=== PATIENT | male | born 1930 | race Caucasian/White ===

== ENCOUNTER 2016-11-10 06:35 | Day surgery (SDC) | payer MEDICARE, OTHER ==
[2016-11-10] VITALS (10 sets, daily range): BP systolic 140–158; BP diastolic 71–79; PULSE 56–74; RESP 13–22; O2SAT 97–100
[~2016-11-10] VITALS: Ht 175.3 cm; Wt 61.3 kg
[~2016-11-10 06:35] MED LIST: ALBU2SYR PO; CLOP75TA28 PO; CeFAZolin Inj 2 GM in IV Premix 1 EACH IV ONE; DILT240T10 PO; DOCU-41 PO; DOXY100T2 PO; HYDR25TA4 PO; SIMV20TA4 PO; TAMS0.4C98 PO
[2016-11-10] MEDS ORDERED: Propofol 10,000 mCg/mL 20 mL Inj ONE (06:36)
[2016-11-10] MEDS ORDERED: fentaNYL-PF 50 mCg/mL 2 mL Inj ONE (06:36)
[2016-11-10] MEDS: Lactated Ringer's 1,000 ML IV SCH ×2 (07:50→08:26)
[2016-11-10] MEDS ORDERED: POTA10TA PO (07:50)
[2016-11-10] MEDS ORDERED: Lactated Ringer's 500 ML IV PRN (08:17)
[2016-11-10] MEDS ORDERED: Lactated Ringer's 1,000 ML IV SCH (08:17)
--- NOTE | 2016-11-10 08:17 | PCM.HPANE ---
Patient Data Surgeon Admitting Provider: Attending Provider:Ana Walsh MD Primary Care Physician:Chandni Feliz MD Other Provider:Nacho Vitale Anesthesia Reason for Visit Left Kidney Stone Ht/WT & BMI Height (Feet): 5 Height (Inches): 9 Weight (Kilograms): 61.33 Body Mass Index 20.00 Allergies Coded Allergies: Sulfa (Sulfonamide Antibiotics) (Unverified Allergy, Unknown, UNKNOWN, ) ciprofloxacin (Unverified Allergy, Unknown, UNKNOWN, 03/21/16) levofloxacin (Unverified Allergy, Unknown, UNKNOWN, 03/21/16) nitrofurantoin (Verified Allergy, Unknown, UNKNOWN, 03/21/16) trimethoprim (Unverified Allergy, Unknown, UNKNOWN, 03/21/16) Past Anesthesia History Anesthesia History: Positive for:: Anesthesia Reactions (PONV), Denies:: Abnormal Airway, Difficult Intubation, Fam Anesthesia Reaction, Fam Malignant Hypertherm, Malignant Hyperthermia Diabetes History Hx Diabetes?: No MRSA MRSA: No Medications Blood Thinner: Plavix Last Dose Blood Thinner: Oct 30, 2016 Hypertension Medication: Yes Home Meds Incl Beta Rachel: No Reported Medications Potassium Chloride ER (K-Tab)10 Meq Stdhwv22 Meq PO day 11/10/16 Simvastatin 20 Mg Iwcwlx32 Mg PO HS Ref 0 11/07/16 Hydrochlorothiazide 25 Mg Otaffa41 Mg PO DAILY 30 Days Ref 0 11/07/16 Diltiazem ER 240 Mg Tab.er.79m429 Mg PO DAILY Ref 0 11/07/16 Docusate Sodium (Colace)100 Mg Incamav563 Mg PO BID PRN For Constipation Ref 0 11/07/16 Clopidogrel 75 Mg Ghvndk99 Mg PO DAILY Ref 0 11/07/16 Albuterol Liquid 2 Mg/5 Ml Syrup2 Mg PO TID Ref 0 11/07/16 Discontinued Reported Medications Tamsulosin (Flomax)0.4 Mg Capsule0.4 Mg PO DAILY Ref 0 11/07/16 Doxycycline Hyclate 100 Mg Knpurd802 Mg PO BID 11/07/16 [Potassium] No Conflict Check Daily 03/24/16 Diltiazem (Cardizem)120 Mg Kedfkm013 Mg PO DAILY Ref 0 10/02/15 Albuterol HFA (Proair HFA)8.5 Gm Hfa.aer.ad2 Puffs INHALATION QID #1 INHALER 10/02/15 Simvastatin 20 Mg Bowtrc08 Mg PO HS Ref 0 10/02/15 Hydrochlorothiazide 25 Mg Zlbecz44 Mg PO DAILY 30 Days Ref 0 10/02/15 Clopidogrel Bisulfate (Plavix)75 Mg Pvysit70 Mg PO DAILY 30 Days Ref 0 10/02/15 Levothyroxine 75 Mcg Boqnmu71 Mcg PO DAILY Ref 0 10/02/15 History History of ENT Problems?: Yes HEENT History: Positive for:: Cataracts (bilateral) Dysphagia (swallowing pills) Sinus Problem (recently treated for sinus infections-denies fever, active cough) Denies:: Abnormal Airway Difficult Intubation Hearing Problem TMJ Denture Type: Full- Upper Full- Lower Teeth Condition: Missing Teeth Hx of Heart Problems?: Yes Cardiovascular History: Positive for:: Hypertension Irregular Heartbeat (OCC PVC'S) Denies:: Cardiac Surgery Chest Pain Congestive Heart Failure Heart Murmur Pacemaker Hx of Respiratory Problem?: Yes Respiratory History: Positive for:: COPD Denies:: Asthma Emphysema Oxygen Administration Pneumonia (hx bronchitis) Pulmonary Embolism Tuberculosis Use of C-PAP Machine Hx Neurologic Problems?: Yes Neurological History: Positive for:: CVA (past hx of, no residual) Denies:: Dizziness Headaches Multiple Sclerosis Parkinson's Disease Seizures Hx of GI Problems?: Yes Gastrointestinal History: Positive for:: Gastrointestinal Bleeding Denies:: Cirrhosis Gastroesphageal Reflux Heartburn Hepatitis Hiatal Hernia Hx of Problems?: Yes Genitourinary History: Positive for:: Kidney Stones (past hx lithotripsy, left kidney stone current admission problem) Denies:: Urinary Tract Infection (past hx of) Male Hx: Positive for:: Prostate Problems (hx of turp) Denies:: Scrotal Mass Testicular Surgery Skin History: Denies:: History Skin Disorders? Pressure Ulcers Hx Musculoskeletal Problems?: Yes Musculoskeletal History: Positive for:: Back Injury (chronic back pain) Osteoarthritis Denies:: Fibromyalgia Joint Replacement Hx of Psycho/Social Problems?: No Psycho Social History: Denies:: Anxiety Bipolar Disorder Hx Depression Suicide Attempt Hx Surgeries?: Yes (CATARACTS,PROSTATE BX TURP X2,TURBT,COLON/GASTRIC SURG, ORAL SURG,LITHOTRIPS) Hx Any Other Health Problems?: Yes Other History: Positive for:: Hospitalization Thyroid Disease Denies:: Cancer Endocrine Disease History Blood Transfusions: Denies:: Blood Transfusions Hx Diabetes: No Hx Alcohol Use: YesHx Substance Use: No Smoking Status: Current Every Day Smoker Have You Smoked inLast 12 mo: Yes Stop/Bang S-Snoring: Do You Snore Loudly: No T-Tired: feel tired, fatigued: Yes O-Obsered: Observed not breath: No P-Blood Pressure: treated: Yes B- Body Mass Index > 35 kg/m2: No A- Age over 50: Yes N- Neck Large Circumference: No G- Gender Male: Yes MARCELL Total Score: 4 Risk Assessment Category Category 1A: Patient has history of documented sleep apnea, and HAS NOT received any narcotic, sedative or anesthesia administration during this stay. Category 1B: Patient has history of documented sleep apnea, and HAS received any narcotic , sedative or anesthesia administration during this stay Category 2: Patient has SUSPECTED Obstructive Sleep Apnea, and HAS received any narcotic , sedative or anesthesia administration during this stay. Category 3: Patient has SUSPECTED Obstructive Sleep Apnea and HAS NOT received narcotic, sedative or anesthesia administration during this stay. Category 4: Outpatient in Procedural Areas with known sleep apnea or who screen positive for High Risk via the STOP/BANG questionnaire. Exam Exam Vital Signs Vital Signs Date Time Temp Pulse Resp B/P Pulse Ox O2 Delivery O2 Flow Rate FiO2 11/10/16 07:11 36 74 16 144/71 99 Room Air General Appearance: Alert, Oriented X3, Cooperative, No Acute Distress HEENT/AIRWAY: MP 2 Lungs: Clear to Auscultation, Normal Air Movement Heart: Exam Unremarkable, Regular Rate/Rhythm, No Murmurs/Rubs/Gallops Meds/Labs/Diagnostics Admission Meds Current Medications Lactated Ringer's (Lr) 1,000 ml @ 120 mls/hr Q8H20M IV Last administered on t 07:50; Start 11/10/16 at 05:00; Stop 11/10/16 at 13:19 Plan Impression Patient chart reviewed, patient interviewed and anesthestic plan with risks, benefits, and alternatives discussed, and informed consent obtained. ASA Physical Status: ASA3 Severe Disease Anesthetic Plan: GA Bene/Risks/Altern/Consents: Yes HP Complete Prior to Induction: Yes Braulio Martinez MD Nov 10, 2016 07:58
[2016-11-10] MEDS ORDERED: HYDROmorphone 1 mg/mL Inj IVPUSH PRN (08:20)
[2016-11-10] MEDS ORDERED: fentaNYL-PF 50 mCg/mL 2 mL Inj IVPUSH PRN (08:20)
[2016-11-10] MEDS ORDERED: MetoCLOpramide 5 mg/mL 2 mL Inj IVPUSH PRN (08:20)
[2016-11-10] MEDS ORDERED: Atropine 0.4 mg/mL Inj IVPUSH PRN (08:20)
[2016-11-10] MEDS ORDERED: Ondansetron 2 mg/mL 2 mL Inj IVPUSH PRN (08:20)
[2016-11-10] MEDS ORDERED: Phenylephrine 10,000 mCg/mL Inj IVPUSH PRN (08:20)
[2016-11-10] MEDS ORDERED: Labetalol 5 mg/mL 4 mL Inj IV PRN (08:20)
[2016-11-10] MEDS ORDERED: EPHEDrine Sulfate 50 mg/mL Inj IVPUSH PRN (08:20)
[2016-11-10] MEDS ORDERED: Dexamethasone 4 mg/mL Inj IVPUSH PRN (08:20)
[2016-11-10] MEDS ORDERED: HYDROcodone-APAP 5-325 mg Tablet PO PRN (08:25)
--- NOTE | 2016-11-10 09:44 | PCM.ANEP1 ---
Post Anesthesia Phase 1 PACU Phase 1 Assessment Vital Signs Vital Signs Date Time Temp Pulse Resp B/P Pulse Ox O2 Delivery O2 Flow Rate FiO2 11/10/16 09:30 65 17 154/75 97 Room Air 11/10/16 09:25 36.3 56 22 151/73 97 Room Air 11/10/16 09:20 58 15 148/77 97 Room Air 11/10/16 09:15 60 13 146/72 98 Room Air 11/10/16 09:10 60 14 140/72 100 Room Air 11/10/16 09:05 63 16 149/71 100 Room Air 11/10/16 09:03 36.3 63 16 145/72 100 Room Air 11/10/16 07:11 36 74 16 144/71 99 Room Air Anesthetic Administered: GA Level of Alertness: Sleepy, easy to arouse CARBALLO's with Equal Strength: Yes Pain: No Nausea or Vomiting: No Cardiovascular Function and Hy: Yes Oxygen Delivery: Room Air Lungs: Clear to Auscultation, Normal Air Movement Dermatome Level: Full Sensation Complications: No Follow up Care: No Patient Instructions Provided: Yes Braulio Martinez MD Nov 10, 2016 09:44
--- NOTE | 2016-11-10 10:06 | DRSVH ---
PROCEDURE: X-RAY KUB ([id number]) INDICATIONS: LEFT KIDNEY STONE TECHNIQUE: One view of the abdomen acquired. COMPARISON: [facility], CR, XR KUB, 12/28/2015, 13:58. FINDINGS: Surgical changes and devices: Bilateral ureteral stents redemonstrated in the distal left stent has m igrated superiorly and could be positioned within the distal left ureter. Bowel: Bowel gas pattern is normal. Soft tissues: Bilateral renal calcifications again seen largest on the right measuring 2.7 cm and on the left 1.9 cm. Findings similar to prior examination. Bones: No suspicious bony lesions. IMPRESSION: 1. Bilateral ureteral stents redemonstrated in the distal aspect of the left ureteral stent has migra jamey superiorly and could be positioned within the distal left ureter. If clinically indicated CT KUB could be performed for further characterization. 2. Bilateral renal stones. Dictated by: Yinka Mujica A Interpreted: Agustin Plasencia MD on 11/10/2016 at 10:03 Transcribed by: JESSICA on 11/10/2016 at 10:05 Approved by: Agustin Plasencia M.D. on 11/10/2016 at 10:31
--- NOTE | 2016-11-10 10:35 | OP ---
[address] [address] OPERATIVE REPORT PATIENT: JOSÉ MIGUEL JENSEN : 1930 MR#: [id number] ADMIT: 11/10/2016 JOB ID: [id number] DATE OF SURGERY: 11/10/2016 PREOPERATIVE DIAGNOSIS(ES): Bilateral kidney stones. POSTOPERATIVE DIAGNOSIS(ES): Bilateral kidney stones. PROCEDURE PERFORMED: Left extracorporeal shockwave lithotripsy. SURGEON: Ana Walsh MD. BRIDGE WELDER: None. FINDINGS: Large bilateral kidney stones. ANESTHESIA: General. ESTIMATED BLOOD LOSS: None. DRAINS: None. SPECIMENS: None. COMPLICATIONS: None. CONDITION: Stable. INDICATION FOR PROCEDURE: The patient is an 85-year-old man with bilateral kidney stones. He now presents for an extracorporeal shockwave lithotripsy. He is status post bilateral ureteral stent placement. DESCRIPTION OF THE PROCEDURE: After informed consent was obtained, the patient was taken to the operating room. A time-out was performed identifying correct patient, surgical site, and procedure. General anesthesia was smoothly induced. He was placed in supine position and positioned over the lithotripter device. Fluoroscopic guidance localized the stone within the cross hairs of the lithotripter. The stone was submitted to a total of 2500 shocks ultimately at a power level of 5. There was hazing of the stone but not complete dissolution, given the large nature of the stone. The patient was then reversed from general anesthesia and taken to the PACU in good and stable condition. ETHAN
== END 2016-11-10 23:59 | disposition home or self-care (01) ==
LOC: SAS 06:35
PROVIDERS: ATTEND Urology
DX: N20.0 Calculus of kidney (principal); I10 Essential (primary) hypertension; J44.9 Chronic obstructive pulmonary disease, unspecified; E78.5 Hyperlipidemia, unspecified; E03.9 Hypothyroidism, unspecified; H54.8 Legal blindness, as defined in USA; F17.210 Nicotine dependence, cigarettes, uncomplicated; Z79.51 Long term (current) use of inhaled steroids
CPT/HCPCS: 50590; 74000; J0690; J3010; J7120

== ENCOUNTER → 2017-02-16 | Day surgery (SDC) | payer MEDICARE, OTHER ==
[2017-02-16] VITALS (8 sets, daily range): BP systolic 100–126; BP diastolic 49–61; PULSE 53–61; RESP 13–20; O2SAT 94–100
[~2017-02-16] VITALS: Ht 175.3 cm; Wt 61.1 kg
[~2017-02-16] MED LIST changes: +ALBU8.5H2 INHALATION; -CeFAZolin Inj 2 GM in IV Premix 1 EACH IV ONE; +Cefepime 2,000 mg/100 mL D5W Minibag Plus IV ONE; -DOXY100T2 PO; +Dexamethasone 4 mg/mL Inj IVPUSH PRN; +EPHEDrine Sulfate 50 mg/mL Inj IVPUSH PRN; +EPHEDrine/NS 5 mg/mL 5 mL Syringe ONE; -HYDR25TA4 PO; +HYDROcodone-APAP 5-325 mg Tablet PO PRN; +HYDROmorphone 1 mg/mL Inj IVPUSH PRN; +Lactated Ringer's 1,000 ML IV ONE; +Lactated Ringer's 1,000 ML IV SCH; +Lactated Ringer's 500 ML IV PRN; +MetoCLOpramide 5 mg/mL 2 mL Inj IVPUSH PRN; +Ondansetron 2 mg/mL 2 mL Inj IVPUSH PRN; +Ondansetron 2 mg/mL 2 mL Inj ONE; +POLY17PO6 PO; +Phenylephrine 10,000 mCg/mL Inj IVPUSH PRN; +Propofol 10,000 mCg/mL 20 mL Inj ONE; -TAMS0.4C98 PO; +fentaNYL-PF 50 mCg/mL 2 mL Inj IVPUSH PRN; +fentaNYL-PF 50 mCg/mL 2 mL Inj ONE
--- NOTE | 2017-02-16 10:11 | PCM.HPANE ---
Patient Data Date of Service: Feb 16, 2017 (1008) Surgeon Admitting Provider: Attending Provider:Karel Rush MD Primary Care Physician:Chandni Feliz MD Other Provider:Nacho Vitale Anesthesia Reason for Visit Right Kidney Stone Ht/WT & BMI Height (Feet): 5 Height (Inches): 9.00 Weight (Kilograms): 61.140 Body Mass Index 19.00 Allergies Coded Allergies: Sulfa (Sulfonamide Antibiotics) (Unverified Allergy, Unknown, UNKNOWN, ) ciprofloxacin (Unverified Allergy, Unknown, UNKNOWN, 03/21/16) levofloxacin (Unverified Allergy, Unknown, UNKNOWN, 03/21/16) nitrofurantoin (Verified Allergy, Unknown, UNKNOWN, 03/21/16) trimethoprim (Unverified Allergy, Unknown, UNKNOWN, 03/21/16) Past Anesthesia History Anesthesia History: Denies:: Abnormal Airway, Anesthesia Reactions, Difficult Intubation, Fam Anesthesia Reaction, Fam Malignant Hypertherm, Malignant Hyperthermia Diabetes History Hx Diabetes?: No MRSA MRSA: No Medications Blood Thinner: Plavix Home Meds Incl Beta Rachel: No Reported Medications Albuterol HFA (Proair HFA)8.5 Gm Hfa.aer.ad2 Puffs INHALATION Q4H PRN For Shortness of Breath #1 INHALER 02/16/17 Polyethylene Glycol 3350 (Miralax)17 Gm Powd.pack17 Gm PO DAILY 02/09/17 Simvastatin 20 Mg Bfzpqf14 Mg PO HS Ref 0 11/07/16 Diltiazem ER 240 Mg Tab.er.48x629 Mg PO DAILY Ref 0 11/07/16 Docusate Sodium (Colace)100 Mg Zlukypo982 Mg PO BID PRN For Constipation Ref 0 11/07/16 Clopidogrel 75 Mg Xxmcmn71 Mg PO DAILY Ref 0 11/07/16 Discontinued Reported Medications Albuterol Liquid 2 Mg/5 Ml Syrup5 Mg PO TID Ref 0 11/07/16 Potassium Chloride ER (K-Tab)10 Meq Moipdu62 Meq PO day 11/10/16 Hydrochlorothiazide 25 Mg Odnkeo68 Mg PO DAILY 30 Days Ref 0 11/07/16 History History of ENT Problems?: Yes HEENT History: Positive for:: Cataracts (bilateral) Dysphagia (swallowing pills) Sinus Problem (recently treated for sinus infections-denies fever, active cough) Denies:: Abnormal Airway Difficult Intubation Hearing Problem TMJ Denture Type: Full- Upper Full- Lower Teeth Condition: Missing Teeth Other HEENT Pertinent History: pt legally blind Hx of Heart Problems?: Yes Cardiovascular History: Positive for:: Hypertension Irregular Heartbeat Denies:: Cardiac Surgery Chest Pain Congestive Heart Failure Heart Murmur Pacemaker Hx of Respiratory Problem?: Yes Respiratory History: Positive for:: COPD Denies:: Asthma Emphysema Oxygen Administration Pneumonia (hx bronchitis) Pulmonary Embolism Tuberculosis Use of C-PAP Machine Hx Neurologic Problems?: Yes Neurological History: Positive for:: CVA (past hx of, no residual) Denies:: Dizziness Headaches Multiple Sclerosis Parkinson's Disease Seizures Hx of GI Problems?: No Hx of Problems?: Yes Genitourinary History: Positive for:: Kidney Stones (past hx lithotripsy, right kidney stone current admission problem) Urinary Tract Infection Other Pertinent History: pt currently with PICC- receiving IV abx for UTI Male Hx: Positive for:: Prostate Problems (hx of turp) Denies:: Scrotal Mass Testicular Surgery Skin History: Denies:: History Skin Disorders? (eczema legs, elbows) Pressure Ulcers Hx Musculoskeletal Problems?: No Musculoskeletal History: Positive for:: Back Injury (chronic back pain) Denies:: Joint Replacement Hx of Psycho/Social Problems?: No Psycho Social History: Denies:: Anxiety Bipolar Disorder Hx Depression Suicide Attempt Hx Surgeries?: Yes (bladder and kidney STENT's stomach surgery) Hx Any Other Health Problems?: Yes Other History: Positive for:: Hospitalization Denies:: Cancer Endocrine Disease Thyroid Disease History Blood Transfusions: Positive for:: Blood Transfusions Hx Diabetes: No Hx Alcohol Use: YesHx Substance Use: No Smoking Status: Current Every Day Smoker Have You Smoked inLast 12 mo: Yes Stop/Bang S-Snoring: Do You Snore Loudly: No T-Tired: feel tired, fatigued: Yes O-Obsered: Observed not breath: No P-Blood Pressure: treated: Yes B- Body Mass Index > 35 kg/m2: No A- Age over 50: Yes N- Neck Large Circumference: No G- Gender Male: Yes MARCELL Total Score: 4 MARCELL Risk Assessment: High Risk, =/>3 Yes Risk Assessment Category Category 1A: Patient has history of documented sleep apnea, and HAS NOT received any narcotic, sedative or anesthesia administration during this stay. Category 1B: Patient has history of documented sleep apnea, and HAS received any narcotic , sedative or anesthesia administration during this stay Category 2: Patient has SUSPECTED Obstructive Sleep Apnea, and HAS received any narcotic , sedative or anesthesia administration during this stay. Category 3: Patient has SUSPECTED Obstructive Sleep Apnea and HAS NOT received narcotic, sedative or anesthesia administration during this stay. Category 4: Outpatient in Procedural Areas with known sleep apnea or who screen positive for High Risk via the STOP/BANG questionnaire. Exam Exam Vital Signs Vital Signs Date Time Temp Pulse Resp B/P Pulse Ox O2 Delivery O2 Flow Rate FiO2 02/16/17 08:17 36.4 61 20 121/59 97 Room Air General Appearance: Alert, Oriented X3 HEENT/AIRWAY: MP 1 Lungs: Clear to Auscultation Heart: Exam Unremarkable Meds/Labs/Diagnostics Admission Meds Current Medications Cefepime HCl 2000 mg/Dextrose/Water 100 ml @ 25 mls/hr PREOP ONCE IV Last administered on 02/16/17 10:01; Start 02/16/17 at 06:00; Stop 02/16/17 at 09:59 ; Status DC Lactated Ringer's (Lr) 1,000 ml @ ud STK-MED ONCE IV Last administered on 02/16 08:10; Start 02/16/17 at 08:10; Stop 02/16/17 at 08:11; Status DC Plan Impression Patient chart reviewed, patient interviewed and anesthestic plan with risks, benefits, and alternatives discussed, and informed consent obtained. NPO per Anesth. Guidelines: Yes ASA Physical Status: ASA3 Severe Disease Anesthetic Plan: GA Bene/Risks/Altern/Consents: Yes HP Complete Prior to Induction: Yes Michael Alaniz MD Feb 16, 2017 10:11
--- NOTE | 2017-02-16 10:36 | DRSVH ---
PROCEDURE: X-RAY KUB ([id number]) INDICATIONS: RIGHT KIDNEY STONE TECHNIQUE: One view of the abdomen acquired. COMPARISON: [facility], CR, XR KUB, 11/10/2016, 6:46. [facility], CT, CT ABD PELVIS W&WO CON IVP, 10/19/2015, 16:26. [facility], CR, XR KUB, 12/28/2015, 13:58. [facility], CR, XR KUB, 02/02/2017, 11:29. FINDINGS: Surgical changes and devices: Bilateral ureteral stents are redemonstrated unchanged in position from prior examination. Bowel: Bowel gas pattern is normal. Soft tissues: Multiple gallstones present. 2 calcifications again seen projected over the right kidn ey largest measuring 2.5 cm unchanged. Bones: No suspicious bony lesions. IMPRESSION: 1. No change in positioning of bilateral ureteral stents from prior examination. 2. 2 calcification again seen projected over the right kidney largest measuring 2.5 cm unchanged from prior examination. 3. Multiple gallstones redemonstrated. Dictated by: Yinka Mujica A Interpreted: Trang Proctor MD on 02/16/2017 at 9:45 Approved by: Tarng Proctor MD, PhD on 02/16/2017 at 10:34
--- NOTE | 2017-02-16 11:38 | PCM.ANEP1 ---
Post Anesthesia PACU Phase 1 Assessment Vital Signs 65, 18, 36.4, 106/49, 97% Vital Signs Date Time Temp Pulse Resp B/P Pulse Ox O2 Delivery O2 Flow Rate FiO2 02/16/17 08:17 36.4 61 20 121/59 97 Room Air Anesthetic Administered: GA Level of Alertness: Awake, talking CARBALLO's with Equal Strength: Yes Pain: No Nausea or Vomiting: No CV Function & Hydration Stable: Yes Airway Device: NONE Oxygen Delivery: Simple Mask Lungs: Clear to Auscultation Dermatome Level: Full Sensation Summary UNEVENTFUL GA PACU Phase 2 Assessment Complications: No Follow up Care: No Patient Instructions Provided: N/A Michael Alaniz MD Feb 16, 2017 11:38
--- NOTE | 2017-02-16 11:52 | PCM.SURGPO ---
Immediate Operative Note Date of Surgery: Feb 16, 2017 Pre Operative Diagnosis R renal calculi Post Operative Diagnosis R renal calculi Procedure Extracorporeal shock wave lithotripsy of R renal calculus Surgeon and Press Operator [employer] Surgeon: Karel Rush MD Assistants: None Findings Pre-op KUB showed R renal calculi x 2 (25mm x 20mm R renal pelvis, 14mm x 12mm R mid pole) and B/L ureteral stents in place. ESWL of R renal pelvis calculus was performed at a rate of 60, up to a maximum energy level of 5, with a total of 2500 shocks administered. Of note, a 2 minute pause was performed after the initial 200 shocks to aid in calculus fragmentation. Post-ESWL fluoroscopy revealed evidence for fair fragmentation of calculus. Of note, B/L ureteral stents were left in place. Complications There were no periprocedural complications identified. Surgical Specimen Removed: No Specimen sent to Pathology: No Anesthetic Administered: GA Grafts, Implants: None Output, Estimated Blood Loss: 0 Blood Admin during surgery: No Additional information Patient to return to see Dr. Connors in 2 weeks for post-op visit, with KUB prior to appt. Karel Rush MD Feb 16, 2017 11:52
--- NOTE | 2017-02-16 12:08 | PCM.DISURG ---
Surgical Discharge Instruction Date of Service Feb 16, 2017 Dates of Hospitalization Date of Hospital Admission Feb 16, 2017 Providers Admitting Physician: Karel Rush MD Primary Care Physician: Chandni Feliz MD Attending Physician: Karel Rush MD Discharge Diagnosis Discharge Diagnosis R renal calculi Post Operative diagnosis R renal calculi Diet Discharge Diet: No restrictions, Other (Drink at least 10-12 8oz. glasses (3 liters) of fluids per day) Activity Discharge Activity-General: Try not to overdue, No driving while taking narcotic Dressing and Incisional Care Hygiene: May shower Additional Instructions Discharge Instructions Do not take any blood-thinning medications (including Plavix/Clopidogrel, Aspirin, Ibuprofen, Motrin, Advil, Naproxen, Aleve, fish oil, and Vitamin E) for 7 days. Strain all urine. Follow Up Plan Follow-up Provider (F9): Trang Connors MD Follow-up appointment: Weeks (Dr. Connors in 2 weeks for post-op visit, with KUB prior to appt.) Call your provider for: Fever, Chills, Vomiting, Other (Pain uncontrolled by pain medications) Karel Rush MD Feb 16, 2017 12:08
--- NOTE | 2017-02-17 09:45 | OP ---
[address] [address] OPERATIVE REPORT PATIENT: JOSÉ MIGUEL JENSEN : 1930 MR#: [id number] ADMIT: 02/16/2017 JOB ID: [id number] DATE OF SURGERY: 02/16/2017 PREOPERATIVE DIAGNOSIS(ES): Right renal calculi. POSTOPERATIVE DIAGNOSIS(ES): Right renal calculi. PROCEDURE: Extracorporeal shockwave lithotripsy of right renal calculus. SURGEON: Karel Rush M.D. WELT RANDER: None. ANESTHESIA: General. ESTIMATED BLOOD LOSS: 0 mL. SPECIMENS: None. DRAINS: None. COMPLICATIONS: None. CONDITION: Stable. FINDINGS: Preop KUB showed right renal calculi x2 (25 mm x 20 mm right renal pelvis, 14 mm x 12 mm right mid pole) and bilateral ureteral stents in place. ESWL of right renal pelvis calculus was performed at a rate of 60 up to a maximum energy level of 5, with a total of 2500 shocks administered. Of note, a 2 minute pause was performed after the initial 200 shocks to aid in calculus fragmentation. Post ESWL fluoroscopy revealed evidence for fair fragmentation of the calculus. Of note, bilateral ureteral stents were left in place. INDICATIONS: The patient is an 86-year-old male with right renal calculi. The patient is followed by Dr. Trang Connors for urolithiasis. The patient was seen in the office by Dr. Connors on February 02, 2017 with a KUB showing small left renal calculi fragments and a large right renal calculi. The patient now presents for extracorporeal shockwave lithotripsy of right renal calculi. Of note, the patient has bilateral ureteral stents in place. Of note, the patient recently within the last several days completed a course of cefepime IV as an outpatient for a UTI. PROCEDURE: The patient was brought to the operating room and placed supine on the operating room table. The patient was given cefepime IV antibiotics. Sequential compression device boots were placed. General anesthesia was administered. The patient was left in supine position. Preop KUB showed right renal calculi x2 (25 mm x 20 mm right renal pelvis, 14 mm x 12 mm right mid-pole) and bilateral ureteral stents in place. Extracorporeal shockwave lithotripsy of the larger right renal pelvis calculus was performed at a rate of 60 up to a maximum energy level of 5, with a total of 2500 shocks administered. Of note, a 2 minute pause was performed after the initial 200 shocks to aid in calculus fragmentation. Post ESWL fluoroscopy revealed evidence for fair fragmentation of the calculus. Of note, bilateral ureteral stents were left in place. The patient was awakened from general anesthesia and transferred to the recovery room in stable condition. The patient tolerated the procedure well. Postoperative plan is for the patient to return to see Dr. Connors in the office in two weeks for a postoperative visit with a KUB prior to the appointment.
== END | disposition home or self-care (01) ==
LOC: SAS 07:20
PROVIDERS: ATTEND Urology
DX: N20.0 Calculus of kidney (principal); I10 Essential (primary) hypertension; J44.9 Chronic obstructive pulmonary disease, unspecified; E03.9 Hypothyroidism, unspecified; H54.0 Blindness, both eyes; F17.210 Nicotine dependence, cigarettes, uncomplicated; Z87.440 Personal history of urinary (tract) infections; Z79.02 Long term (current) use of antithrombotics/antiplatelets; Z86.73 Personal history of transient ischemic attack (TIA), and cerebral infarction without residual deficits
CPT/HCPCS: 50590; 74000; J0692; J2405; J3010; J7120

== ENCOUNTER → 2017-04-06 | Day surgery (SDC) | payer MEDICARE, OTHER ==
[~2017-04-06] VITALS: Ht 175.3 cm; Wt 63.0 kg
[2017-04-06] VITALS (12 sets, daily range): BP systolic 101–149; BP diastolic 59–91; PULSE 66–88; RESP 13–18; O2SAT 66–100
[~2017-04-06] MED LIST changes: -ALBU2SYR PO; +Atropine 0.4 mg/mL Inj IVPUSH PRN; +Belladonna Alk-Opium 60 mg Rectal Suppository RECTAL ONE; +DILT-5 PO; -DILT240T10 PO; -DOCU-41 PO; -EPHEDrine/NS 5 mg/mL 5 mL Syringe ONE; +FOSF3PAC PO; +LACT1CAP65 PO; +Labetalol 5 mg/mL 20 mL Inj IV PRN; -MetoCLOpramide 5 mg/mL 2 mL Inj IVPUSH PRN; -Ondansetron 2 mg/mL 2 mL Inj ONE; +POTA10CA42 PO
--- NOTE | 2017-04-06 07:06 | PCM.HPANE ---
Patient Data Surgeon Admitting Provider: Attending Provider:Karel Rush MD Primary Care Physician:Chandni Feliz MD Other Provider:Nacho Vitale Anesthesia Reason for Visit Bilateral Kidney Stones Ht/WT & BMI Height (Feet): 5 Height (Inches): 9 Weight (Kilograms): 62. Body Mass Index 20.00 Allergies Coded Allergies: Sulfa (Sulfonamide Antibiotics) (Unverified Allergy, Unknown, UNKNOWN, ) ciprofloxacin (Unverified Allergy, Unknown, UNKNOWN, 04/05/17) levofloxacin (Unverified Allergy, Unknown, UNKNOWN, 04/05/17) nitrofurantoin (Verified Allergy, Unknown, UNKNOWN, 04/05/17) trimethoprim (Unverified Allergy, Unknown, UNKNOWN, 03/21/16) Past Anesthesia History Anesthesia History: Denies:: Abnormal Airway, Anesthesia Reactions, Difficult Intubation, Fam Anesthesia Reaction, Fam Malignant Hypertherm, Malignant Hyperthermia Diabetes History Hx Diabetes?: No MRSA MRSA: No Medications Blood Thinner: Plavix Reported Medications Potassium Chloride 10 Meq Capsule.er10 Meq PO DAILY 30 Days Ref 0 TAKE WITH FOOD 04/05/17 Fosfomycin Tromethamine (Monurol)3 Gm Packet3 Gm PO DAILY 04/05/17 Diltiazem (Tiazac)240 Mg Capsule.er240 Mg PO DAILY 04/05/17 Simvastatin 20 Mg Puxdiy33 Mg PO HS Ref 0 04/05/17 Polyethylene Glycol 3350 (Miralax)17 Gm Powd.pack17 Gm PO TID 04/05/17 Clopidogrel 75 Mg Qztdxh67 Mg PO DAILY Ref 0 04/05/17 Albuterol HFA (Proair HFA)8.5 Gm Hfa.aer.ad2 Puffs INHALATION Q4H #1 INHALER 04/05/17 Lactobacillus Acidophilus (Probiotic)1 Each Capsule1 Each PO DAILY 04/05/17 Discontinued Reported Medications Albuterol HFA (Proair HFA)8.5 Gm Hfa.aer.ad2 Puffs INHALATION Q4H PRN For Shortness of Breath #1 INHALER 02/16/17 Polyethylene Glycol 3350 (Miralax)17 Gm Powd.pack17 Gm PO DAILY 02/09/17 Simvastatin 20 Mg Qasroz13 Mg PO HS Ref 0 11/07/16 Diltiazem ER 240 Mg Tab.er.50z453 Mg PO DAILY Ref 0 11/07/16 Docusate Sodium (Colace)100 Mg Kkjdfxy471 Mg PO BID PRN For Constipation Ref 0 11/07/16 Clopidogrel 75 Mg Gpfpkt10 Mg PO DAILY Ref 0 11/07/16 History History of ENT Problems?: Yes HEENT History: Positive for:: Cataracts (bilateral) Dysphagia (swallowing pills) Sinus Problem (recently treated for sinus infections-denies fever, active cough) Denies:: Abnormal Airway Difficult Intubation Hearing Problem TMJ Denture Type: Full- Upper Full- Lower Teeth Condition: Within Normal Limits Hx of Heart Problems?: Yes Cardiovascular History: Positive for:: Hypertension Irregular Heartbeat Denies:: Cardiac Surgery Chest Pain Congestive Heart Failure Heart Murmur Pacemaker Hx of Respiratory Problem?: Yes Respiratory History: Positive for:: COPD Use of Inhalers / NEBS (albuterol inh) Denies:: Asthma Emphysema Oxygen Administration Pneumonia (hx bronchitis) Pulmonary Embolism Tuberculosis Use of C-PAP Machine Hx Neurologic Problems?: Yes Neurological History: Positive for:: CVA (past hx of, no residual) Denies:: Alzheimer's Disease Dementia Dizziness Headaches Multiple Sclerosis Parkinson's Disease Seizures Hx of GI Problems?: No Hx of Problems?: Yes Genitourinary History: Positive for:: Kidney Stones (past hx lithotripsy, right kidney stone current admission problem) Urinary Tract Infection Denies:: HX of Hemodialysis HX of Peritoneal Dialysis: No Male Hx: Positive for:: Prostate Problems (hx of turp) Denies:: Scrotal Mass Testicular Surgery Skin History: Denies:: History Skin Disorders? (psorosis legs, ) Pressure Ulcers Hx Musculoskeletal Problems?: No Musculoskeletal History: Positive for:: Back Injury (chronic back pain) Denies:: Degenerative Joint Joint Replacement Musculoskeletal Trauma Osteoarthritis Rheumatoid Arthritis Hx of Psycho/Social Problems?: No Psycho Social History: Denies:: Anxiety Bipolar Disorder Hx Depression Suicide Attempt Hx Surgeries?: Yes (kidney stone) Hx Any Other Health Problems?: Yes Other History: Positive for:: Hospitalization (2016 ) Denies:: Cancer Endocrine Disease Thyroid Disease History Blood Transfusions: Positive for:: Accept Blood Products? Blood Transfusions Denies:: Blood Transfuse Reaction Hx Diabetes: No Hx Alcohol Use: NoHx Substance Use: No Smoking Status: Current Every Day Smoker Have You Smoked inLast 12 mo: YesApprox How Many Cigarettes/day: 20 Stop/Bang S-Snoring: Do You Snore Loudly: No T-Tired: feel tired, fatigued: Yes O-Obsered: Observed not breath: No P-Blood Pressure: treated: Yes B- Body Mass Index > 35 kg/m2: No A- Age over 50: Yes N- Neck Large Circumference: No G- Gender Male: Yes MARCELL Total Score: 4 Risk Assessment Category Category 1A: Patient has history of documented sleep apnea, and HAS NOT received any narcotic, sedative or anesthesia administration during this stay. Category 1B: Patient has history of documented sleep apnea, and HAS received any narcotic , sedative or anesthesia administration during this stay Category 2: Patient has SUSPECTED Obstructive Sleep Apnea, and HAS received any narcotic , sedative or anesthesia administration during this stay. Category 3: Patient has SUSPECTED Obstructive Sleep Apnea and HAS NOT received narcotic, sedative or anesthesia administration during this stay. Category 4: Outpatient in Procedural Areas with known sleep apnea or who screen positive for High Risk via the STOP/BANG questionnaire. Exam Exam General Appearance: Alert, Oriented X3, Cooperative, No Acute Distress HEENT/AIRWAY: MP 2 Lungs: Clear to Auscultation Heart: Exam Unremarkable Plan Impression Patient chart reviewed, patient interviewed and anesthestic plan with risks, benefits, and alternatives discussed, and informed consent obtained. NPO per Anesth. Guidelines: Yes ASA Physical Status: ASA2 Mod Systemic Disease Anesthetic Plan: GA Bene/Risks/Altern/Consents: Yes HP Complete Prior to Induction: Yes Mike Veliz MD Apr 06, 2017 07:06
--- NOTE | 2017-04-06 16:06 | PCM.ANEP1 ---
Post Anesthesia PACU Phase 1 Assessment Vital Signs Vital Signs Date Time Temp Pulse Resp B/P Pulse Ox O2 Delivery O2 Flow Rate FiO2 04/06/17 16:00 72 15 127/63 100 Nasal Cannula 3 04/06/17 15:55 72 16 112/67 100 Nasal Cannula 3 04/06/17 15:50 72 15 101/80 99 Simple Mask 6 04/06/17 15:45 71 13 125/63 99 Simple Mask 6 04/06/17 15:42 36.2 69 13 118/67 99 Simple Mask 6 04/06/17 09:50 36.2 66 16 140/70 66 Room Air Anesthetic Administered: GA Level of Alertness: Awake, talking CARBALLO's with Equal Strength: Yes Pain: No Nausea or Vomiting: No CV Function & Hydration Stable: Yes Airway Device: Oxygen Delivery: Room Air Lungs: Normal Air Movement PACU Phase 2 Assessment Complications: No Follow up Care: No Patient Instructions Provided: N/A Mike Veliz MD Apr 06, 2017 16:05
--- NOTE | 2017-04-06 16:07 | PCM.SURGPO ---
Immediate Operative Note Date of Surgery: Apr 06, 2017 Pre Operative Diagnosis B/L renal calculi, migrated L ureteral stent, h/o recurrent UTI's Post Operative Diagnosis B/L renal calculi, migrated L ureteral stent, h/o recurrent UTI's, bladder calculus Procedure Cystoscopy, L ureteroscopy, L ureteroscopic extraction of migrated L ureteral stent from L ureter, B/L ureteral stent removal, B/L ureteral stent placement, and cystolitholapaxy and Holmium laser cystolithotripsy of bladder calculus Surgeon and Escapement Matcher Surgeon: Karel Rush MD Assistants: None Findings Cystoscopy revealed an approx. 1cm bladder calculus, no bladder tumors, distal end of R ureteral stent in bladder, and distal end of L ureteral stent not visible in bladder. L semi-rigid ureteroscopy revealed distal end of L ureteral stent in distal L ureter. L ureteroscopic extraction of migrated L ureteral stent from L ureter was performed using a rat-tooth ureteroscopic grasper. B/L ureteral stents were removed, and new B/L ureteral stents were placed. Of note, urine drained from R renal pelvis and L renal pelvis was seen to be cloudy and infected-appearing. Cystolitholapaxy and Holmium laser cystolithotripsy of bladder calculus was performed. Complications There were no periprocedural complications identified. Surgical Specimen Removed: Yes Specimen sent to Pathology: No Surgical Specimen description: Bladder calculus fragments sent for stone analysis Urine Cx from R kidney and urine Cx from L kidney sent to micro lab Anesthetic Administered: GA Grafts, Implants: Other (26cm x 6F B/L ureteral JJ stents (no string)) Output, Estimated Blood Loss: <5 Blood Admin during surgery: No Additional information Patient to return to see TAHMINA Haro in 1.5 - 2 weeks for post-op visit, with KUB prior to appt. Karel Rush MD Apr 06, 2017 16:07
--- NOTE | 2017-04-06 16:32 | PCM.DISURG ---
Surgical Discharge Instruction Date of Service Apr 06, 2017 Dates of Hospitalization Date of Hospital Admission Apr 06, 2017 Providers Admitting Physician: Karel Rush MD Primary Care Physician: Chandni Feliz MD Attending Physician: Karel Rush MD Discharge Diagnosis Discharge Diagnosis B/L renal calculi, migrated L ureteral stent, h/o recurrent UTI's, bladder calculus Post Operative diagnosis B/L renal calculi, migrated L ureteral stent, h/o recurrent UTI's, bladder calculus Diet Discharge Diet: No restrictions, Other (Drink at least 10-12 8oz. glasses (3 liters) of fluids per day ) Activity Discharge Activity-General: No driving while taking narcotic Dressing and Incisional Care Hygiene: May shower Follow Up Plan Mid-level Provider (F9): Amalia Haro PA-C Follow-up appointment: Weeks (TAHMINA Haro in 1.5 - 2 weeks for post-op visit, with KUB prior to appt.) Call your provider for: Fever, Chills, Vomiting, Other (Pain uncontrolled by pain medications) Karel Rush MD Apr 06, 2017 16:32
--- NOTE | 2017-04-08 02:54 | OP ---
[address] [address] OPERATIVE REPORT PATIENT: JOSÉ MIGUEL JENSEN : 1930 MR#: [id number] ADMIT: 04/06/2017 JOB ID: [id number] DATE OF SURGERY: 04/06/2017 PREOPERATIVE DIAGNOSIS(ES): 1. Bilateral renal calculi. 2. Migrated left ureteral stent. 3. History of recurrent urinary tract infections. POSTOPERATIVE DIAGNOSIS(ES): 1. Bilateral renal calculi. 2. Migrated left ureteral stent. 3. History of recurrent urinary tract infection. 4. Bladder calculus. PROCEDURE: 1. Cystoscopy. 2. Left ureteroscopy. 3. Left ureteroscopic extraction of migrated left ureteral stent from left ureter. 4. Bilateral ureteral stent removal. 5. Bilateral ureteral stent placement and cystolitholapaxy and holmium laser cystolithotripsy of bladder calculus. SURGEON: Karel Rush MD. ART LIBRARIAN: None. ANESTHESIA: General. ESTIMATED BLOOD LOSS: Less than 5 mL. SPECIMENS: Bladder calculus fragments sent to the lab for stone analysis, urine culture from right kidney and urine culture from left kidney sent to microbiology lab. DRAINS: 26 cm x 6-Mozambican, bilateral ureteral double-J stents. COMPLICATIONS: None. CONDITION: Stable. FINDINGS: Cystoscopy revealed an approximately 1 cm bladder calculus. No bladder tumors. Distal end of right ureteral stent and bladder and distal end of left ureteral stent not visible in bladder. Left semi-rigid ureteroscopy revealed distal end of left ureteral stent and distal left ureter. Left ureteroscopic extraction of migrated left ureteral stent from left ureter was performed using a rat-tooth ureteroscopic grasper. Bilateral ureteral stents were removed and new bilateral ureteral stents were placed. Of note, urine drained from right renal pelvis and left renal pelvis was seen to be cloudy and infected appearing. Cystolitholapaxy and holmium laser cystolithotripsy of bladder calculus was performed. INDICATIONS: The patient is an 86-year-old male with bilateral renal calculi and history of recurrent UTIs. The patient was previously followed by Dr. Trang Connors and patient has bilateral ureteral stents in place. Of note, these bilateral ureteral stents were initially placed on March 24, 2016 when patient underwent cystoscopy, left ureteroscopy and bilateral ureteral stent change. The patient has been having recurrent urinary tract infections and patient on recent CT scan was noted to have bilateral renal calculi and migrated left ureteral stent with the distal end of the left renal stent in the distal left ureter. The patient now presents for cystoscopy, left ureteroscopy, left ureteroscopic extraction of migrated left ureteral stent from left ureter, bilateral ureteral stent removal, bilateral ureteral stent placement, right ureteroscopy, holmium laser lithotripsy, basket extraction of calculi fragments. DESCRIPTION OF PROCEDURE: The patient was brought to the operating room and placed supine on the operating room table. The patient was given cefepime IV antibiotics. Sequential compression device boots were placed. General anesthesia was administered. The patient was brought down into the dorsal lithotomy position. The patient was prepped and draped in standard surgical fashion. A 22-Mozambican rigid cystoscope was placed into the distal urethra without difficulty. Cystoscopy revealed normal distal urethra and approximately 1 cm bladder calculus. No bladder tumors. The distal end of the right renal stent in the bladder and the distal end of the left ureteral stent not visible in the bladder and bilateral ureteral orifices in normal position. An angle tip All Track guidewire was passed into the left ureteral orifice with assistance of a 5-Mozambican open-ended catheter and the angle tip All Track guidewire was able to be passed up the left ureter into the left renal pelvis. Open-ended catheter was removed. The cystoscope was removed from the patient. Guidewire was secured with the drape with a Tammi clamp as a safety wire. A semi-rigid ureteroscope was passed through the urethra bladder and into the left renal orifice with assistance a PTFE guidewire. Left semi-rigid ureteroscopy revealed distal end of left ureteral stent and distal left ureter. Left ureteroscopic extraction of migrated left renal stent from the left ureter was performed using a rat-tooth, was difficult, but however in the end was able be performed using a rat-tooth ureteroscopic grasper and brought out the left ureter and then the migrated left ureteral stent was able be removed in its entirety and discarded. Thus the left ureteral stent was removed. The scope was placed through the urethra into the bladder so that the rigid scope was passed over the safety guidewire through the urethra into the bladder. A 26 cm x 6-Mozambican ureteral double-J stent, with the stent string removed prior to stent placement, was passed over the guidewire through the cystoscope and passed up the left ureter and placement of proximal pigtail was located in the left renal pelvis. Distal pigtail was located in the bladder. The guidewire was removed. Correct positioning of the stent was confirmed. Of note, prior to this a 5-Mozambican open-ended catheter was passed over the safety guidewire. After passage of the rigid cystoscope over the safety guidewire, through the urethra into the bladder, a 5-Mozambican open-ended catheter was passed over the safety guidewire, through the urethra, through the cystoscope and passed up the left ureter into the left renal pelvis. The guidewire was removed. Urine was drained from the left renal collecting system and this urine was seen to be cloudy and infected appearing. A small amount of contrast was instilled through the open-ended catheter into the left renal collecting system to illuminate the left renal collecting system to aid in stent placement. The guidewire was advanced through the open-ended catheter, up the left ureter and into the left renal pelvis. The guidewire was passed through the open-ended catheter, up the left ureter into the left renal pelvis. Open-ended catheter was removed. A 26 cm x 6-Mozambican ureteral double-J stent, the stent string removed prior to stent placement, was passed over the guidewire through the cystoscope and passed up the left ureter and placed proximal. Pigtail was located in the left renal pelvis. Distal pigtail was located in the bladder. The guidewire was removed. Correct position of the stent was confirmed both fluoroscopically and under direct visualization using cystoscope. Good efflux of contrast could be seen draining from the distal end of the stent into the bladder, further confirming correct stent positioning. Thus, the left ureteral stent removed and a new left ureteral stent was placed. Then cystoscope was passed through the urethra into the bladder and the angle tip All Track guidewire was passed into the right ureteral orifice and passed up the right ureter into the right renal pelvis. The cystoscope was removed from the patient. The guidewire secured to the drape with a Tammi clamp as a safety wire. Then actually after passage of the guidewire up the right ureter into right orifice up the right ureter into right renal pelvis, a 5-Mozambican open-ended catheter was passed over the guidewire, through the cystoscope and passed up the right ureter and into the right renal pelvis. The guidewire was removed. Urine was drained from the right renal collecting system and the urine was drained from the right renal pelvis and this urine drained from the right renal pelvis was seen to be cloudy and infected appearing. The decision was made not to perform ureteroscopy holmium laser lithotripsy and basket extraction of calculi fragments on the right side secondary to the patient's infection in the right renal collecting system. After all the urine was drained from the right renal collecting system, a small amount of contrast was instilled through the open-ended catheter into the right renal collecting system to illuminate the right renal collecting system and aid in stent placement. The guidewire was passed through the open-ended catheter, up the right ureter into the right renal pelvis. Open-ended catheter was removed from the patient. A 26 cm x 6-Mozambican ureteral double-J stent, the stent string removed. Prior to stent placement, was passed over the guidewire through the cystoscope and passed up the right ureter and placed so the proximal pigtail was located in the right renal pelvis and distal pigtail was located in the bladder. The guidewire was removed. Correct positioning of the stent was confirmed both fluoroscopically and under direct visualization using cystoscope. Good efflux of contrast could be seen draining from the distal end of the stent into the bladder, further confirming correct positioning of bilateral ureteral stents. confirmed correct positioning and correct placement both fluoroscopically and under direct visualization using cystoscope. Good efflux of contrast could be seen draining from the distal ends of both right and left ureteral stents into the bladder, further confirming correct stent positioning. The rigid cystoscope was passed through the urethra into the bladder. The bladder calculus was visualized. Cystolitholapaxy and holmium laser cystolithotripsy of the bladder calculus was performed using a 365 micron holmium laser fiber and the calculus was fragmented into small fragments using the holmium laser. The cystolitholapaxy and holmium laser cystolithotripsy was performed. All significant bladder calculus fragments were extracted from the bladder via cystoscope and irrigation through the cystoscope. Bladder calculus fragments were sent to the lab for stone analysis and the urine culture from right kidney and urine culture from left kidney were sent to microbiology lab. The bladder was visualized. No significant larger than 1-2 mm calculus fragments were seen and bilateral ureteral stents were seen in place as previously stated. Then, the bladder was drained via the cystoscope. The cystoscope was removed from the patient. The skin was cleaned and dried. The patient was placed in supine position. The patient was awakened from general anesthesia and transferred to the recovery room in stable condition. The patient tolerated the procedure well. POSTOPERATIVE PLAN: Plan is for the patient return to see TAHMINA Haro in 1 1/2 to 2 weeks for a postoperative visit with a KUB prior to the appointment. The patient will need treatment of the bilateral renal calculi in the future after his infection has completely resolved.
--- NOTE | 2017-04-11 17:02 | DRSVH ---
PROCEDURE: X-RAY RETROGRADE UROGRAPHY INDICATIONS: BILATERAL STENT REPLACEMENT TECHNIQUE: 5 intra-operative images acquired by the Urology service. COMPARISON: [facility], CR, XR RETROGRADE UROGRAPHY, 04/06/2017, 13:08. FINDINGS: The right renal collecting system is accessed. There is placement of a right-sided double -J stent, with the ends in the expected locations. No rina intraoperative complication is seen. Ple ase correlate with intraoperative findings. IMPRESSION: Right double-J stent placement. Dictated by: Lance Nolasco M.D. on 04/11/2017 at 17:00 Approved by: Lance Nolasco M.D. on 04/11/2017 at 17:00
--- NOTE | 2017-04-11 17:03 | DRSVH ---
PROCEDURE: X-RAY RETROGRADE UROGRAPHY INDICATIONS: C-ARM ASSISTED PROCEDURE TECHNIQUE: 4 intra-operative images acquired by the Urology service. COMPARISON: [facility], CT, CT KUB, 03/28/2017, 10:55. [facility], CR, XR RE TROGRADE UROGRAPHY, 04/06/2017, 13:08. FINDINGS: The left renal collecting system was accessed. On the final 2 images, a left-sided double J stent has been placed with the ends in the expected locations. No rina intraoperative complicatio n is seen. Please correlate with intraoperative findings. IMPRESSION: Left-sided double-J stent placement. Dictated by: Lance Nolasco M.D. on 04/11/2017 at 17:01 Approved by: Lance Nolasco M.D. on 04/11/2017 at 17:01
== END | disposition home or self-care (01) ==
LOC: SAS 09:29
PROVIDERS: ATTEND Urology
DX: N20.0 Calculus of kidney (principal); N21.0 Calculus in bladder; Z87.440 Personal history of urinary (tract) infections; J44.9 Chronic obstructive pulmonary disease, unspecified; I10 Essential (primary) hypertension; E78.5 Hyperlipidemia, unspecified; E03.9 Hypothyroidism, unspecified; F17.210 Nicotine dependence, cigarettes, uncomplicated
CPT/HCPCS: 52317; 52356; 74420; 82360; 87086; C2617; J0692; J2704; J3010; J7120; Q9967